=== PATIENT | female | born 1975 | race Caucasian/White ===

== ENCOUNTER 2024-06-13 17:51 | Emergency (ER) | payer MEDICAID ==
[~2024-06-13] VITALS: Ht 152.4 cm; Wt 57.2 kg
[2024-06-13] MEDS ORDERED: KETOROLAC TROMETHAMINE INJ 60 MG/2 ML VIAL IM ONE (18:34)
[2024-06-13] MEDS: KETOROLAC TROMETHAMINE INJ 60 MG/2 ML VIAL IM ONE (18:48)
[2024-06-13] MEDS ORDERED: IBUP-1953 PO (19:27)
[2024-06-13 20:06] VITALS: BP 129/67; TEMP 98; O2SAT 99
== END 2024-06-13 20:00 | disposition home or self-care (01) ==
LOC: ER 17:55
DX: M54.2 Cervicalgia (principal); R07.9 Chest pain, unspecified; V43.52XA Car driver injured in collision with other type car in traffic accident, initial encounter; Y93.89 Activity, other specified; Y92.488 Other paved roadways as the place of occurrence of the external cause; Y99.8 Other external cause status
CPT/HCPCS: 99284; 96372; 72050; 71111; J1885